=== PATIENT | male | born 1960 | race Caucasian/White ===

== ENCOUNTER 2019-10-18 18:02 | Emergency (ER) | payer OTHER, MEDICAID ==
[~2019-10-18] VITALS: Ht 175.3 cm; Wt 88.7 kg
[~2019-10-18 18:02] MED LIST: ALBU6.7H9 INH; DOXY100T2 PO
[2019-10-18] MEDS ORDERED: MUPI22OI30 TOP (18:45)
[2019-10-18 19:07] VITALS: BP 142/78
== END 2019-10-18 19:06 | disposition home or self-care (01) ==
LOC: ER 18:03
DX: L08.89 Other specified local infections of the skin and subcutaneous tissue (principal); E78.00 Pure hypercholesterolemia, unspecified; J45.909 Unspecified asthma, uncomplicated; E11.9 Type 2 diabetes mellitus without complications; Z98.890 Other specified postprocedural states; Z90.49 Acquired absence of other specified parts of digestive tract; Z88.1 Allergy status to other antibiotic agents
CPT/HCPCS: 99283

== ENCOUNTER 2023-07-11 13:53 | Emergency (ER) | payer MEDICARE, MEDICAID ==
[~2023-07-11] VITALS: Ht 175.3 cm; Wt 86.3 kg
[~2023-07-11 13:53] MED LIST changes: +ALBU6.7H14 INH; -ALBU6.7H9 INH
[2023-07-11 13:58] VITALS: BP 120/84; PULSE 87; RESP 16; TEMP 98.4; O2SAT 97
[2023-07-11] MEDS ORDERED: CLIN300C54 PO (14:29)
== END 2023-07-11 14:36 | disposition home or self-care (01) ==
LOC: ER 13:54
DX: K08.89 Other specified disorders of teeth and supporting structures (principal); E78.00 Pure hypercholesterolemia, unspecified; J45.909 Unspecified asthma, uncomplicated; E11.9 Type 2 diabetes mellitus without complications; F20.9 Schizophrenia, unspecified; F31.9 Bipolar disorder, unspecified; Z88.1 Allergy status to other antibiotic agents; Z79.899 Other long term (current) drug therapy
CPT/HCPCS: 99283